=== PATIENT | male | born 1990 | race Caucasian/White ===

== ENCOUNTER 2019-02-06 23:48 | Emergency (ER) | payer SELFPAY, OTHER ==
[2019-02-07 03:26] LABS: URINE BLOOD (Dip) POC Negative (NEGATIVE); URINE GLUCOSE (Dip) POC Negative (NEGATIVE); URINE KETONES (Dip) POC Negative (NEGATIVE); URINE LEUKOCYTE EST (Dip) POC Negative (NEGATIVE); URINE NITRITE (Dip) POC Negative (NEGATIVE); URINE TOTAL PROTEIN POC Negative (NEGATIVE)
== END 2019-02-07 05:02 | disposition home or self-care (01) ==
LOC: FTE 23:48
DX: N50.811 Right testicular pain (principal)
CPT/HCPCS: 76870; 81003; 99284-25